=== PATIENT | female | born 1990 | race Two or more races ===

== ENCOUNTER 2016-12-06 02:58 | Emergency (ER) | payer OTHER ==
[2016-12-06 02:31] LABS: SPECIFIC GRAVITY 1.025 (1.001-1.030); URINE BILIRUBIN NEGATIVE (NEGATIVE); URINE BLOOD TRACE (NEGATIVE); URINE GLUCOSE (UA) NEGATIVE (NEGATIVE); URINE LEUKOCYTE ESTERASE TRACE (NEGATIVE); URINE NITRITE NEGATIVE (NEGATIVE); URINE PROTEIN NEGATIVE (NEGATIVE); URINE UROBILINOGEN NORMAL (0-1 mg/dl)
[2016-12-06 02:40] VITALS: BMI 30.2
[2016-12-06 02:41] LABS: URINE APPEARANCE HAZY; URINE COLOR YELLOW
[2016-12-06 02:42] LABS: URINE AMORPHOUS SEDIMENT 2+; URINE BACTERIA 1+; URINE MUCUS 1+
[2016-12-06] MEDS ORDERED: SODIUM CHLORIDE 0.9% 1,000 ML ONE (03:50)
[2016-12-06] MEDS ORDERED: ONDANSETRON 4 MG/2ML 2 ML VIAL ONE (03:50)
[2016-12-06] MEDS ORDERED: MAALOX/LIDO2%VISC/SIMETHICONE 40 ML BOT ONE (03:50)
[2016-12-06] MEDS ORDERED: PANTOPRAZOLE SODIUM 40 MG VIAL IV ONE (03:50)
[2016-12-06 04:29] LABS: BASO % 0.1 % (0.2-1.0); EOS % 0.2 % (0.9-2.9); HEMATOCRIT 38.2 % (37.0-47.0); HEMOGLOBIN 12.9 gm/l (12.0-16.0); IMM NEUT% 0.3 % (0-1); LYMPH # 1.2 (1.0-4.8); LYMPH % 11.5 % (15-45); MEAN CORPUSCULAR HEMOGLOBIN 29.7 pg (27.0-31.0); MEAN CORPUSCULAR HGB CONC 33.8 g/dl (33.0-37.0); MEAN PLATELET VOLUME 10.3 fl (7.4-10.4); MONO # 0.4 (0.0-0.8); MONO % 3.3 % (4-12); NEUT % 84.6 % (43-75); PLATELET COUNT 275 K/mm3 (130-400)
[2016-12-06 04:44] LABS: ALB/GLOB RATIO 1.2 (>1.0); ALBUMIN 3.8 gm/dL (3.5-5.7); CALCIUM 9.4 mg/dL (8.6-10.3)
[2016-12-06] MEDS ORDERED: ACETAMINOPHEN 500 MG TABLET ONE (04:47)
== END 2016-12-06 05:03 | disposition home or self-care (01) ==
LOC: ED 02:58 → FBC 02:58 → EDSTATUS 03:07 → ED 05:03
DX: R10.13 Epigastric pain (principal)
CPT/HCPCS: 83690; 82150; 85025; 80053; 81001; 96375; 99283 ×2; 96374; 96361; 59025; A9270 ×2; C9113; J2405; J7030; G0463